=== PATIENT | male | born 1995 ===

== ENCOUNTER 2020-04-21 20:26 | Emergency (ER) | payer OTHER ==
[2020-04-21] MEDS ORDERED: Morphine 10 MG/ML VIAL ONE (20:44)
[2020-04-21] MEDS ORDERED: diphenhydrAMINE 50 MG/ML VIAL ONE (20:44)
[2020-04-21 20:47] LABS: #Basophils 0.1 thou/uL (0.0-0.2); #Eosinphils 0.2 thou/uL (0.0-0.7); #Lymphocytes 2.3 thou/uL (1.20-3.40); #Monocytes 0.6 thou/uL (0.11-0.59); #Neutrophils 3.6 thou/uL (1.40-6.50); %Basophils 0.8 % (0.0-1.0); %Eosinophils 2.8 % (0.0-10.0); %Lymphocytes 33.9 % (21.0-51.0); %Monocytes 9.1 % (0.0-10.0); %Neutrophils 53.4 % (42.0-75.0); Hemoglobin 14.4 g/dL (14.0-18.0); Mean Corpuscular HGB CONC 32.3 g/dL (32.0-36.0); Mean Corpuscular Hemoglobin 30.3 pg (27.0-31.0); Mean Corpuscular Volume 93.9 fL (78.0-98.0); Mean Platelet Volume 8.5 fL (7.4-10.4); Platelet Count 212 thou/uL (130-400); RBC Distribution Width 10.9 % (11.5-14.5); Red Blood Cell (RBC) Count 4.74 mill/uL (4.70-6.10); White Blood Cell (WBC) Count 6.8 thou/uL (4.8-10.8)
[2020-04-21 21:02] LABS: ALT (SGPT) 22 U/L (8-55); AST (SGOT) 27 U/L (5-34); Albumin 4.7 g/dL (3.5-5.0); Alkaline Phosphatase 51 U/L (40-110); Anion Gap 14 mmol/L (10-20); BUN (Urea Nitrogen) 21 mg/dL (8.9-20.6); Bilirubin, Total 0.4 mg/dL (0.2-1.2); Calc. Creatinine Clearance 0 mL/min (70-130); Calcium 8.9 mg/dL (7.8-10.44); Carbon Dioxide 29 mmol/L (22-29); Chloride 101 mmol/L (98-107); Estimated GFR-MDRD 72; Globulin 2.8 g/dL (2.4-3.5); Glucose 111 mg/dL (70-105); Lipase 27 U/L (8-78); Potassium 3.4 mmol/L (3.5-5.1); Protein, Total 7.5 g/dL (6.0-8.3); Sodium 141 mmol/L (136-145)
[2020-04-21] MEDS ORDERED: Morphine 4 MG/ML VIAL ONE (21:12)
--- NOTE | 2020-04-21 21:28 | RAD ---
THREE VIEWS RIGHT ANKLE: Date: 04-21-2020 History: Injury, trauma, pain. FINDINGS: There is soft tissue swelling overlying the lateral malleolus. There is an obliquely oriented mildly comminuted fracture involving the tip of the medial malleolus. There is no evidence for a dislocation . IMPRESSION: Soft tissue swelling. Fracture of the medial malleolus. POS: OFF
== END 2020-04-21 21:58 | disposition home or self-care (01) ==
LOC: BURERS 20:26
DX: S82.54XA Nondisplaced fracture of medial malleolus of right tibia, initial encounter for closed fracture (principal); I10 Essential (primary) hypertension; F41.9 Anxiety disorder, unspecified; F17.290 Nicotine dependence, other tobacco product, uncomplicated; Z79.899 Other long term (current) drug therapy; V95.1 Ultralight, microlight or powered-glider accident injuring occupant
CPT/HCPCS: 27760; 80053; 83690; 85025; 94760; 96361; 96374; 96375; J1200; J2270